=== PATIENT | male | born 1980 | race Caucasian/White ===

== ENCOUNTER 2019-11-18 11:40 | Emergency (ER) | payer OTHER ==
[2019-11-18] MEDS ORDERED: Sulfamethoxazole/Trimethoprim 800-160 MG Tab ONE (12:00)
[2019-11-18] MEDS: Diphtheria,Pertussis(Acell),Tetanus Vaccine 0.5 ML SDV inactive IM ONE (12:36)
[2019-11-18] MEDS: cefTRIAXone 2 GM Vial ONE (12:43)
--- NOTE | 2019-11-18 13:11 | ER ---
REASON FOR EMERGENCY ROOM VISIT: Skin infection, right leg. HISTORY: This is a 39-year-old man is up in the [facility] fishing this weekend. He comes in with a complaint of swelling and redness in the lower leg just below the right knee area. He states that 3 days ago, he was kneeling down on the floor of an old house that they are remodeling. 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 He apparently felt something poked through the skin near an area where he had an old healing small laceration that he experienced sometime ago. This is a very superficial laceration, but it was in that general area where he felt a sharp penetrating type of pain. He stood up and the pain went away and he went about his business. Beginning yesterday and into today, he noticed some redness and discomfort and tightness of his skin and swelling of his right lower leg. He has not had any fever or chills, but he did have some nausea a couple of times, which interestingly enough resolved after he took some ibuprofen. He states his last tetanus shot was definitely within the last 10 years, but he is not certain as to exactly the time of this. He was given a tetanus booster after he suffered a finger laceration. He lives in the [facility] some [place] hours away. He states his health is otherwise very good. MEDICATIONS: None. ALLERGIES: NONE TO MEDICATIONS. REVIEW OF SYSTEMS: Pertinent positives and negatives as noted above. PHYSICAL EXAMINATION: GENERAL: He is afebrile. MUSCULOSKELETAL: Examination of his right lower leg, he has a very tiny, very superficial laceration approximately 3-4 mm in length over the tibial tuberosity area of the skin of the right lower leg. There is some callus over his knees from kneeling down doing his work a great deal. There is no subcutaneous crepitus, but there is some edema from the knee on down and there is diffuse erythema that seems to center around the area of the tibial tuberosity. This erythema has the appearance of a cellulitis that seems to extend at least for 4 or 5 inches in all directions. It is slightly warm to the touch compared to the surrounding normal skin. On palpation of his inguinal lymph nodes on the right side, he does have some mild inguinal adenopathy, undoubtedly reactive secondary to the cellulitis distally. There is no subcutaneous crepitus detected. PLAN: 1. Tetanus booster. 2. Rocephin 2 g IM daily x3 days. He will return here tomorrow and Wednesday morning for his 3rd Rocephin dose. In addition, I have started him on Bactrim DS one p.o. b.i.d. x10 days. He states he is going back home to [place] on Wednesday and that he can arrange to be seen the following day by his provider. I instructed him that should he begin to experience increasing fever, chills, pain, or any discomfort, he should get or return for a recheck. All questions were answered. He understands and agrees with this plan. DIAGNOSIS: Cellulitis, right lower extremity. CLAIRE/SHEREEN /[id number]
== END 2019-11-18 13:02 | disposition home or self-care (01) ==
LOC: LB.ED 11:40
DX: L03.115 Cellulitis of right lower limb (principal); Z23 Encounter for immunization
CPT/HCPCS: 90471; 90715; 96372; 99283; A9270-GY; J0696